=== PATIENT | female | born 1985 | race Two or more races ===

== ENCOUNTER 2016-08-17 11:20 | Day surgery (SDC) | payer MEDICAID, OTHER ==
[2016-08-17] VITALS (15 sets, daily range): BP systolic 77–104; BP diastolic 43–51; PULSE 56–67; RESP 11–27; Ht 157.5 cm; Wt 56.7 kg
[~2016-08-17] VITALS: Ht 157.5 cm; Wt 56.7 kg
[2016-08-17] MEDS ORDERED: LACTATED RINGER'S 1,000 ML IV SCH (12:30)
[2016-08-17 12:46] LABS: ADD SCAN DIFF NO
[2016-08-17 12:49] LABS: ADD UMIC YES; URINE BILIRUBIN (Dip) NEGATIVE (NEGATIVE); URINE BLOOD (Dip) 2+ (NEGATIVE); URINE COLOR LT. YELLOW (YELLOW); URINE GLUCOSE (Dip) NEGATIVE (NEGATIVE); URINE KETONES (Dip) NEGATIVE (NEGATIVE); URINE LEUKOCYTE ESTERASE (Dip) NEGATIVE (NEGATIVE); URINE NITRITE (Dip) NEGATIVE (NEGATIVE); URINE TOTAL PROTEIN (Dip) NEGATIVE (NEGATIVE); URINE UROBILINOGEN (Dip) 0.2 E.U./dL (0.1-1.0)
[2016-08-17 12:51] LABS: BASOPHIL # 0.1 10^3/ul (0.0-0.1); BASOPHILS % 0.7 % (0.0-2.0); EOSINOPHILS # 0.2 10^3/ul (0.0-0.5); EOSINOPHILS % 2.6 % (0.0-7.0); HEMATOCRIT 35.8 % (37.0-47.0); HEMOGLOBIN 11.6 g/dl (12.0-16.0); LYMPHOCYTES # 2.4 10^3/ul (0.8-2.9); LYMPHOCYTES % 34.2 % (15.0-51.0); MEAN CORPUSCULAR HEMOGLOBIN 29.9 pg (29.0-33.0); MEAN CORPUSCULAR HGB CONC 32.4 g/dl (32.0-37.0); MEAN CORPUSCULAR VOLUME 92.3 fl (82.0-101.0); MEAN PLATELET VOLUME 11.4 fl (7.4-10.4); MONOCYTE # 0.4 10^3/ul (0.3-0.9); MONOCYTES % 5.7 % (0.0-11.0); NEUTROPHIL # 3.9 10^3/ul (1.6-7.5); NEUTROPHILS % 56.5 % (39.0-77.0); PLATELET COUNT 357 10^3/UL (140-415); RED BLOOD COUNT 3.88 10^6/ul (4.20-5.40); RED CELL DISTRIBUTION WIDTH 11.9 % (11.5-14.5); WHITE BLOOD COUNT 6.9 10^3/ul (4.8-10.8)
[2016-08-17] MEDS ORDERED: FENTAnyl 50 MCG/ML VIAL ONE (14:14)
[2016-08-17] MEDS ORDERED: PROPOFOL 20 ML ONE (14:14)
[2016-08-17] MEDS ORDERED: SUCCINYLCHOLINE CHLORIDE 100 MG/5 ML SYG IV ONE (14:14)
[2016-08-17] MEDS ORDERED: CEFAZOLIN 1 GM INJ ONE ×2 (14:14→15:50)
[2016-08-17] MEDS ORDERED: ROCURONIUM 50 MG INJ ONE (14:14)
[2016-08-17] MEDS ORDERED: METOCLOPRAMIDE 10 MG INJ ONE (14:14)
[2016-08-17] MEDS ORDERED: ONDANSETRON 4 MG INJ ONE (14:14)
[2016-08-17] MEDS ORDERED: MEPERIDINE 25 MG INJ IV PRN (15:00)
[2016-08-17] MEDS ORDERED: ONDANSETRON 4 MG INJ IV PRN (15:00)
[2016-08-17] MEDS ORDERED: HYDROmorphONE (0.2 MG/ML) 10ML SYG IV PRN ×3 (15:00)
[2016-08-17] MEDS ORDERED: FENTAnyl 50 MCG/ML VIAL IV PRN ×2 (15:00)
--- NOTE | 2016-08-17 15:22 | DS ---
Date/Time of Note Date/Time of Note DATE: 08/17/16 TIME: 15:17 Discharge Summary Admission/Discharge Info Admit Date/Time 08/17/16 Discharge Date/Time 08/17/16 Final Diagnosis incomplete Patient Condition: Good Procedures hysteroscopic dilatation and curettage Hx of Present Illness incomplete ab Hospital Course good Follow-up Plan appointment in one week in the office Pending Labs Laboratory Tests Test 08/17/16 12:15 White Blood Count 6.910^3/ul (4.8-10.8) Red Blood Count 3.8810^6/ul (4.20-5.40) Hemoglobin 11.6g/dl (12.0-16.0) Hematocrit 35.8% (37.0-47.0) Mean Corpuscular Volume 92.3fl (82.0-101.0) Mean Corpuscular Hemoglobin 29.9pg (29.0-33.0) Mean Corpuscular Hemoglobin Concent 32.4g/dl (32.0-37.0) Red Cell Distribution Width 11.9% (11.5-14.5) Platelet Count 39432^3/UL (140-415) Mean Platelet Volume 11.4fl (7.4-10.4) Neutrophils % 56.5% (39.0-77.0) Lymphocytes % 34.2% (15.0-51.0) Monocytes % 5.7% (0.0-11.0) Eosinophils % 2.6% (0.0-7.0) Basophils % 0.7% (0.0-2.0) Nucleated Red Blood Cells % 0.0/100WBC (0.0-0.0) Neutrophils # 3.910^3/ul (1.6-7.5) Lymphocytes # 2.410^3/ul (0.8-2.9) Monocytes # 0.410^3/ul (0.3-0.9) Eosinophils # 0.210^3/ul (0.0-0.5) Basophils # 0.110^3/ul (0.0-0.1) Nucleated Red Blood Cells # 0.010^3/ul (0.0-0.0) Urine Color LT. YELLOW (YELLOW) Urine Clarity CLEAR (CLEAR) Urine pH 6.0 (5.0-9.0) Urine Specific [place] 1.020 (1.003-1.030) Urine Ketones NEGATIVE (NEGATIVE) Urine Nitrite NEGATIVE (NEGATIVE) Urine Bilirubin NEGATIVE (NEGATIVE) Urine Urobilinogen 0.2 E.U./dL (0.1-1.0) Urine Leukocyte Esterase NEGATIVE (NEGATIVE) Urine Microscopic RBC 5-10/HPF (0) Urine Microscopic WBC NONE SEEN/HPF (0) Urine Epithelial Cells OCCASIONAL Urine Hemoglobin 2+ (NEGATIVE) Urine Glucose NEGATIVE% (NEGATIVE) Urine Total Protein NEGATIVE (NEGATIVE) JAZLYN CARMICHAEL MD Aug 17, 2016 15:22
[2016-08-17] MEDS ORDERED: KETOROLAC 30 MG INJ IV PRN (15:30)
[2016-08-17] MEDS ORDERED: IBUPROFEN 600 MG TAB PO PRN (15:30)
[2016-08-17] MEDS ORDERED: PROPOFOL 100 ML ONE (15:40)
--- NOTE | 2016-08-17 15:47 | OPR ---
DATE OF OPERATION: 08/17/2016 PREOPERATIVE DIAGNOSES: Incomplete . POSTOPERATIVE DIAGNOSES: Incomplete . OPERATION PERFORMED: Hysteroscopy, dilatation and suction curettage. SURGEON: Jazlyn Johnson MD ANESTHESIA: General. ANESTHESIOLOGIST: Dr. Alvarado Orona. DETAILS OF THE PROCEDURE: Under satisfactory general anesthesia, the patient was prepped and draped and placed in dorsal lithotomy position. Bimanual pelvic examination normal marital introitus, nor mal vagina, cervix multiparous. Uterus top normal size. Adnexa not palpable. Weighted speculum in troduced into the vagina. Anterior cervical lip grasped by a Kofi tenaculum. Uterine cavity sound ed, measured at 9 inches. Cervical dilatation further advanced with the Eriberto dilator and 5 mm scope was introduced into the uterus. Visualization of the uterus did not detect any abnormality or any products of conception. Scope was removed and it was followed with the suction curettage using a Va curette #9 and followed with a medium size sharp curetting that was gently started at 12 o'clock cou nterclockwise. The patient received 30 units of Pitocin during the procedure. Tolerated procedure well. At the end of the procedure, there was no bleeding. ESTIMATED BLOOD LOSS: Less than 20 mL. The patient was transferred to recovery room in a good condition. Dictated By: JAZLYN CHATTERJEE/MICHAEL Conf#: [id number] DID#: [id number]
[2016-08-17] MEDS ORDERED: LIDOCAINE 2% (SDV) 5 ML INJ ONE (15:50)
[2016-08-17] MEDS ORDERED: ACETAMINOPHEN 1000MG/100ML IV 100 ML ONE (16:20)
[2016-08-17] MEDS ORDERED: DEXAMETHASONE 4 MG/ML 1 ML INJ ONE (16:22)
[2016-08-17] MEDS ORDERED: LABETALOL HCL 20MG INJ ONE (16:43)
[2016-08-17] MEDS ORDERED: PROPOFOL 40 ML ONE (16:58)
[2016-08-17] MEDS ORDERED: NEOSTIGMINE 3 MG/3 ML SYRINGE ONE (17:13)
[2016-08-17] MEDS ORDERED: GLYCOPYRROLATE 0.4 MG INJ ONE (17:14)
[2016-08-17] MEDS ORDERED: KETOROLAC 30 MG INJ ONE (17:19)
== END 2016-08-17 17:15 | disposition home or self-care (01) ==
LOC: SDS 11:20
PROVIDERS: ATTEND Obstetrics & Gynecology
DX: O03.4 Incomplete spontaneous abortion without complication (principal)
CPT/HCPCS: 59812; 81001; 84703; 85025; 88305; J0131; J0330; J0690; J1100; J1885; J2405; J2710; J2765; J3010; Z7512; Z7610; 81003